=== PATIENT | female | born 2000 | race Caucasian/White ===

== ENCOUNTER 2021-03-11 20:08 | Emergency (ER) | payer BC ==
[~2021-03-11] VITALS: Ht 152.4 cm; Wt 90.7 kg
[~2021-03-11 20:08] MED LIST: ADDERALL 10 MG10 MG PO; BENTYL 10 MG CA10 MG PO; CEPHALEXIN500 MG PO; FLAGYL500 M1 PO; FLOMAX0.4 MG PO; HYDROCODON-ACE1 EAC7 PO; HYDROXYZINE HCL10 M2; KEFLEX500 M1 PO; NORCO 5-325 TA1 EACH PO; PROZAC10 M1; ZOFRAN ODT4 MG DISSOLVE; ZOFRAN ODT4 MG PO
[2021-03-11 20:55] LABS: URINE BILIRUBIN NEGATIVE (Negative); URINE BLOOD NEGATIVE (Negative); URINE CLARITY CLEAR; URINE COLOR YELLOW; URINE GLUCOSE-RANDOM* NEGATIVE (Negative); URINE KETONES NEGATIVE (Negative); URINE LEUKOCYTES-REFLEX NEGATIVE (Negative); URINE NITRITE-REFLEX NEGATIVE (Negative); URINE PROTEIN (DIPSTICK) NEGATIVE (Negative); URINE SPECIFIC GRAVITY 1.015 (1.005-1.035)
[2021-03-11 20:56] LABS: HEMOGLOBIN 14.6 gm/dL (12.0-15.0); MCH 31.4 pg (26.0-34.0); MCV 92.3 fL (80.0-100.0); RBC 4.66 mil/uL (4.20-5.00); RDW 12.4 % (10.5-14.5); WBC 10.5 thou/uL (4.0-11.0)
[2021-03-11 21:00] LABS: CALCIUM 9.2 mg/dL (8.5-10.1); CREATININE 0.9 mg/dL (0.6-1.0); POTASSIUM 5.2 mmol/L (3.5-5.1)
[2021-03-11 21:06] LABS: ALBUMIN 3.9 g/dL (3.4-5.0); TOTAL BILIRUBIN 0.6 mg/dL (0.2-1.0); TOTAL PROTEIN 7.3 g/dL (6.4-8.2)
[2021-03-11] MEDS ORDERED: HYDROXYZINE HCL25 M2 PO (21:10)
[2021-03-11] MEDS ORDERED: STRATTERA25 MG PO (21:11)
[2021-03-11] MEDS ORDERED: FLUOXETINE HCL40 MG PO (21:12)
[2021-03-11] MEDS ORDERED: AMBIEN5 MG PO (21:12)
[2021-03-11] MEDS ORDERED: BENTYL 10 MG CA10 M1 PO (23:06)
[2021-03-11] MEDS ORDERED: ZOFRAN ODT4 MG PO (23:06)
[2021-03-11 23:10] VITALS: BP 108/58
== END 2021-03-11 23:10 | disposition home or self-care (01) ==
LOC: ER 20:08
PROVIDERS: Nurse Practitioner Family
DX: R11.2 Nausea with vomiting, unspecified (principal); Z20.822 Contact with and (suspected) exposure to COVID-19; R10.30 Lower abdominal pain, unspecified; Z98.890 Other specified postprocedural states; Z79.899 Other long term (current) drug therapy; Z88.5 Allergy status to narcotic agent